=== PATIENT | female | born 1965 | race Two or more races ===

== ENCOUNTER 2016-11-12 11:04 | Emergency (ER) | payer BC, OTHER ==
[~2016-11-12] VITALS: Ht 157.5 cm; Wt 59.0 kg
[~2016-11-12 11:04] MED LIST: FISH OIL 1,0001 EAC3 ORAL; GLUCOSAMINE PO
[2016-11-12] MEDS ORDERED: SYNTHROID25 MCG ORAL (11:14)
--- NOTE | 2016-11-12 12:08 | Diagnostic Imaging Report ---
Indication: Hip pain status post fall Technique: Continuous helical CT scanning of the head was performed without intravenous contrast material. Axial and coronal 5 mm sections were generated. Radiation dose was minimized using automated exposure control Dose: Total Dose Length Product - DLP [address] Dose Index - CTDIvol(s) 70.38 mGy. Comparison: Findings: The ventricular system is normal in size and configuration. There is no shift of midline structures. No abnormal extra-axial fluid collections are noted. There is no evidence of intracerebral bleeding. No other abnormal high or low density areas are noted within the brain. Visualized orbits and sinuses are unremarkable. No significant extracranial soft tissue abnormality demonstrated. Intact calvarium Impression: Normal CT scan of the head without contrast material. The CT scanner at [facility] is accredited by the [employer] and the scans are performed using protocols designed to limit radiation exposure to as low as reasonably achievable to attain images of sufficient resolution adequate for diagnostic evaluation.
[2016-11-12] MEDS ORDERED: IBUPROFEN600 MG ORAL (12:44)
[2016-11-12 12:57] VITALS: BP 109/65
--- NOTE | 2016-11-12 13:04 | Emergency Room Report ---
History of Present Illness General Chief Complaint: Multiple Trauma/Fall Source: Patient Present Illness HPI Patient presents emergency department today status post fall. Patient fell and hit her head. Patient's complaint headache and neck pain. Patient denies loss consciousness. Patient however is concerned because she has history of meningioma is concerned that the fall could affect her. She denies any chest pain shortness breath or any other pain. Symptoms noted to be moderate. This occurred prior to arrival. This occurred at work it is considered to be a workers comp injury. Patient initially saw her primary care physician who told her to come emergency department for further evaluation and possible imaging. Patient's primary care physician Dr. Bueno. No other modifying factors. No other associated signs and symptoms. No other complaints were noted. Allergies: Coded Allergies: HYDROCODONE (Unverified Allergy, Intermediate, vomiting, dizziness, ) CODEINE (Verified Allergy, Unknown, 11/12/16) Patient History Past Medical History: HTN Past Surgical History: none Pertinent Family History: none Social History: Denies: alcohol use, drug use, smoking Last Menstrual Period: 1 year ago Reviewed Nursing Documentation: PMH: Agreed, PSxH: Agreed Nursing Documentation-PMH Past Medical History: No History, Except For Hx Hypertension: Yes Hx Cancer: No Hx Gastrointestinal Problems: No Hx Neurological Problems: No Review of Systems All Other Systems: negative except mentioned in HPI Physical Exam Vital Signs Date Time Temp Pulse Resp B/P Pulse Ox O2 Delivery O2 Flow Rate FiO2 11/12/16 11:07 98.4 75 14 120/82 99 Room Air Sp02 EP Interpretation: reviewed, normal General Appearance: normal inspection, well appearing, no apparent distress, alert Head: atraumatic Eyes: bilateral eye normal inspection ENT: normal ENT inspection, hearing grossly normal, normal voice Neck: other - Mild tenderness diffusely on neck Respiratory: normal inspection, lungs clear, normal breath sounds, no respiratory distress, no retraction, no wheezing Cardiovascular #1: regular rate, rhythm, no edema Gastrointestinal: normal inspection, normal bowel sounds, non tender, soft, no guarding, no hernia Genitourinary: no CVA tenderness Musculoskeletal: normal inspection, back normal, normal range of motion Neurologic: normal inspection, alert, responsive, speech normal Psychiatric: normal inspection, judgement/insight normal, mood/affect normal Skin: normal inspection, normal color, no rash Medical Decision Making Diagnostic Impression: Primary Impression: Neck strain Additional Impressions: Head trauma Fall ER Course Patient presents emergency department today status post blunt head trauma. Differential considerations include intracranial injury neck fracture neck strain. Given patient's presentation I felt the patient require x-rays. CT of the brain was noted to be negative. X-rays of the neck was also negative. Given patient's symptoms are negative he'll the patient be discharged home. Case discussed with Dr. Bueno. Patient is advised to follow up with primary doctor in 2-3 days and return the emergency room for any worsening symptoms and as needed. Last Vital Signs Date Time Temp Pulse Resp B/P Pulse Ox O2 Delivery O2 Flow Rate FiO2 11/12/16 12:57 98.0 73 16 109/65 98 Room Air Status: improved Disposition: HOME, SELF-CARE Condition: Stable Scripts Ibuprofen* (MOTRIN*) 600 Mg Tablet 600 MG ORAL Q8H Y for For Pain, #30 TAB 0 Refills Prov: YASHIRA WEST M.D. 11/12/16 Departure Forms: Return to Work Patient Instructions: Head Injury, Adult, [id number] YASHIRA WEST M.D. Nov 12, 2016 13:04
--- NOTE | 2016-11-12 14:26 | Diagnostic Imaging Report ---
Indication: PAIN Technique: 3 views of the cervical spine Comparison: none Findings: There is very slight anterior offset of C4 on C5. Otherwise normal bony alignment. There is slight degenerative disc narrowing at C5-6. The remainder of the disc heights are preserved. Vertebral body heights are preserved. No acute fractures. No dislocations. No prevertebral soft tissue swelling Impression: Minimal degenerative changes, as described No acute bony trauma
== END 2016-11-12 12:59 | disposition home or self-care (01) ==
LOC: EMR 11:35
DX: S16.1XXA Strain of muscle, fascia and tendon at neck level, initial encounter (principal); W19.XXXA Unspecified fall, initial encounter; Y93.9 Activity, unspecified; Y92.9 Unspecified place or not applicable; S09.90XA Unspecified injury of head, initial encounter; I10 Essential (primary) hypertension; Z88.6 Allergy status to analgesic agent
CPT/HCPCS: 70450; 72040; 99284